=== PATIENT | male | born 1960 | race Caucasian/White ===

== ENCOUNTER → 2016-10-06 | Outpatient (CLI) | payer BC ==
[2015-08-29 17:17] VITALS: BP 135/84
[~2016-10-06] MED LIST: ASPIRIN E.C. 8181 MG PO; NORCO 325 MG-51 TAB PO; VIBRAMYCIN HYC100 MG PO
== END ==
LOC: RAD 10:53
DX: M79.662 Pain in left lower leg (principal)

== ENCOUNTER 2022-07-27 08:16 | Emergency (ER) | payer BC ==
[~2022-07-27] VITALS: Ht 185.4 cm; Wt 95.0 kg
[~2022-07-27 08:16] MED LIST changes: -CARDIZEM LA120 MG PO; -ELIQUIS5 M1 PO; -FISH OIL1 IU PO; -GLUCOSAMIN-CHO1 EACH PO; -METAMUCIL3.4 GM/Dos PO; -VAZALORE81 MG PO
[2022-07-27] MEDS ORDERED: VAZALORE81 MG PO (08:42)
[2022-07-27] MEDS ORDERED: FISH OIL1 IU PO (08:42)
[2022-07-27] MEDS ORDERED: GLUCOSAMIN-CHO1 EACH PO (08:42)
[2022-07-27] MEDS ORDERED: METAMUCIL3.4 GM/Dos PO (08:43)
[2022-07-27 09:13] LABS: BASO # 0.01 K/mm3 (0.02-0.10); EOS # 0.04 K/mm3 (0.04-0.40); EOS % 0.5 % (0.0-4.0); HEMATOCRIT 50.4 % (42.0-52.0); HEMOGLOBIN 16.9 g/dL (13.5-18.0); LYMPH# 1.81 K/mm3 (1.50-4.00); MEAN CELL VOLUME 88 fl (78-100); MEAN CORPUSCULAR HEMOGLOBIN 29 pg (27-31); MEAN CORPUSCULAR HGB CONC 34 g/dL (33-37); MEAN PLATELET VOLUME 10.6 fl (7.4-10.4); MONO # 0.73 K/mm3 (0.20-0.80); NEU # 5.94 K/mm3 (1.40-6.50); PLATELET COUNT 268 K/mm3 (130-400); RED BLOOD COUNT 5.76 M/mm3 (4.20-5.60); RED CELL DISTRIBUTION WIDTH 12.3 % (11.5-14.5); WHITE BLOOD COUNT 8.5 K/mm3 (4.8-10.8)
[2022-07-27 09:24] LABS: ALBUMIN 3.9 g/dL (3.5-5.0); POTASSIUM 5.1 mmol/L (3.5-5.1)
[2022-07-27 09:25] LABS: CALCIUM 9.7 mg/dL (8.3-10.5)
[2022-07-27 09:26] LABS: TOTAL PROTEIN 6.9 g/dL (6.4-8.3)
[2022-07-27 09:28] LABS: TOTAL BILIRUBIN 0.6 mg/dL (0.2-1.2)
[2022-07-27 09:29] LABS: PROTHROMBIN TIME 10.6 SECONDS (9.0-12.0)
[2022-07-27 09:37] LABS: D-DIMER 0.28 mg/L FEU (0.15-0.50)
[2022-07-27] MEDS ORDERED: ELIQUIS5 M1 PO (10:56)
[2022-07-27] MEDS ORDERED: CARDIZEM LA120 MG PO (10:56)
[2022-07-27 12:00] VITALS: BP 125/77
== END 2022-07-27 11:16 | disposition home or self-care (01) ==
LOC: ED 08:16
PROVIDERS: Physician Assistant
DX: I48.91 Unspecified atrial fibrillation (principal)

== ENCOUNTER → 2022-07-27 | Outpatient (CLI) | payer BC ==
[~2022-07-27] MED LIST changes: +CARDIZEM LA120 MG PO; +ELIQUIS5 M1 PO; +FISH OIL1 IU PO; +GLUCOSAMIN-CHO1 EACH PO; +METAMUCIL3.4 GM/Dos PO; +VAZALORE81 MG PO
== END ==
LOC: VAS 11:31
DX: I48.91 Unspecified atrial fibrillation (principal)

== ENCOUNTER → 2023-06-12 | Day surgery (SDC) | payer BC ==
[~2023-06-12] MED LIST changes: +CARDIZEM LA120 MG PO; +ELIQUIS5 M1 PO; +FISH OIL1 IU PO; +GLUCOSAMIN-CHO1 EACH PO; +METAMUCIL3.4 GM/Dos PO; +VAZALORE81 MG PO
== END | disposition home or self-care (01) ==
LOC: MSO 08:11
DX: Z12.11 Encounter for screening for malignant neoplasm of colon (principal)
CPT/HCPCS: 00812; J2704; J7120